=== PATIENT | male | born 1985 | race Caucasian/White ===

== ENCOUNTER 2017-01-04 12:54 | Emergency (ER) | payer OTHER ==
[2017-01-04 13:26] VITALS: BP 136/74
--- NOTE | 2017-01-04 13:39 | UC ---
Abdominal Pain Male HPI - HPI Summary HPI Summary: VOMITING AND DIARRHEA X 2 DAYS + FEVER, CHILLS, NO ABDOMINAL PAIN NO URINARY SX - History of Current Complaint Chief Complaint: UCGeneralIllness Stated Complaint: ACHES,FEVER,THROWING UP Time Seen by Provider: 01/04/17 13:17 Hx Obtained From: Patient Onset/Duration: Gradual Onset, Lasting Days - 2, Still Present Timing: Constant Severity Initially: Moderate Severity Currently: Moderate Location: Diffuse Radiates: No Character: Cramping Aggravating Factor(s):: Food Associated Signs And Symptoms: Positive: Fever, Nausea, Vomiting, Diarrhea. Negative: Diaphoresis, Cough, Chest Pain, Dizzy, Back Pain, Constipation, Blood in Stool, Urinary Symptoms, Decreased Appetite, Penile Discharge - Allergies/Home Medications Allergies/Adverse Reactions: Allergies Allergy/AdvReac Type Severity Reaction Status Date / Time seasonal Allergy Eyes Uncoded 01/04/17 13:26 Itchy/Swollen/Red/Watery Home Medications: Home Medications Gkmmorx-Gcyloaqjilbue-Wxigzout [Excedrin Migraine] 1 tab PO BID PRN 01/04/17 [ History Confirmed 01/04/17] PMH/Surg Hx/FS Hx/Imm Hx Endocrine History: Diabetes - Surgical History Surgical History: Yes Surgery Procedure, Year, and Place: laser eye surgery for retinopathy 2014 - Family History Known Family History: Positive: Hypertension - MOTHER, Diabetes - MOTHER - Social History Alcohol Use: Occasionally Substance Use Type: Excessive Caffeine, Marijuana Substance Use Comment - Amount & Last Used: 2 weeks ago pot Smoking Status (MU): Light Every Day Tobacco Smoker Type: Cigarettes Amount Used/How Often: 1 PPD Length of Time of Smoking/Using Tobacco: 11 Years Have You Smoked in the Last Year: Yes Review of Systems Constitutional: Negative Skin: Negative Eyes: Negative ENT: Negative Respiratory: Negative Cardiovascular: Negative Gastrointestinal: Vomiting, Diarrhea, Nausea All Other Systems Reviewed And Are Negative: Yes Physical Exam Triage Information Reviewed: Yes Appearance: Well-Appearing, No Pain Distress, Well-Nourished Vital Signs: Initial Vital Signs Temp 99.2 F 01/04/17 13:19 Pulse 96 01/04/17 13:19 Resp 18 01/04/17 13:19 BP 136/74 01/04/17 13:19 Vital Signs Reviewed: Yes Eyes: Positive: Conjunctiva Clear ENT: Positive: Normal ENT inspection, Hearing grossly normal, Pharynx normal Neck: Positive: Supple, Nontender, No Lymphadenopathy Respiratory: Positive: Chest non-tender, Lungs clear, Normal breath sounds Cardiovascular: Positive: RRR, No Murmur, Pulses Normal Abdominal Exam: Normal Abdomen Description: Positive: Nontender, Soft. Negative: CVA Tenderness (R), CVA Tenderness (L), Distended, Guarding Bowel Sounds: Positive: Present Skin Exam: Normal Abd Pain Male Course/Dx - Differential Dx/Clinical Impression Provider Diagnoses: GASTROENTERITIS Discharge - Discharge Plan Condition: Stable Disposition: HOME Patient Education Materials: Gastroenteritis (ED) Forms: *Work Release Referrals: Priscilla Hudson [Primary Care Provider] - If Needed
== END 2017-01-04 13:41 | disposition home or self-care (01) ==
LOC: UCCORT 12:54
DX: K52.9 Noninfective gastroenteritis and colitis, unspecified (principal); R50.9 Fever, unspecified; E11.9 Type 2 diabetes mellitus without complications; F12.90 Cannabis use, unspecified, uncomplicated; F17.210 Nicotine dependence, cigarettes, uncomplicated
CPT/HCPCS: 99211; G0463

== ENCOUNTER 2017-04-28 11:54 | Emergency (ER) | payer OTHER ==
[2017-04-28 12:30] VITALS: BP 114/68
--- NOTE | 2017-04-28 12:53 | UC ---
Throat Pain/Nasal Jorge HPI - HPI Summary HPI Summary: 31 y/o male presents to the urgent care c/o body aches, low grade fever, COHEN and mild sore throat since yesterday. Pt took Excedrin PO yesterday to alleviate symptoms. Nasal congestion has clear nasal discharge and B/L ear pressure. Pt denies abdominal pain, cough, SOB, chest pain, N/V/D. 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 - History of Current Complaint Chief Complaint: UCGeneralIllness Stated Complaint: LOW GRADE EVER/BODY ACHES Time Seen by Provider: 04/28/17 12:32 Hx Obtained From: Patient Onset/Duration: Gradual Onset, Lasting Days - 1 day, Still Present Severity: Mild Pain Intensity: 4 Pain Scale Used: 0-10 Numeric Cough: None Associated Signs & Symptoms: Positive: Nasal Discharge - with clear nasal discharge, Fever - low grade. Negative: Vomiting - Epiglottits Risk Factors Epiglottis Risk Factors: Negative - Allergies/Home Medications Allergies/Adverse Reactions: Allergies Allergy/AdvReac Type Severity Reaction Status Date / Time seasonal Allergy Eyes Uncoded 04/28/17 12:30 Itchy/Swollen/Red/Watery PMH/Surg Hx/FS Hx/Imm Hx Previously Healthy: Yes Endocrine History: Diabetes - DM type I - Surgical History Surgical History: Yes Surgery Procedure, Year, and Place: laser eye surgery for retinopathy 2014 - Family History Known Family History: Positive: Hypertension - MOTHER, Diabetes - MOTHER - Social History Occupation: Employed Full-time Lives: With Family Alcohol Use: Rare Substance Use Type: Marijuana Substance Use Comment - Amount & Last Used: 2 weeks ago pot Smoking Status (MU): Light Every Day Tobacco Smoker Type: Cigarettes Amount Used/How Often: 1 PPD Length of Time of Smoking/Using Tobacco: 11 Years Have You Smoked in the Last Year: Yes Review of Systems Constitutional: Fever - low grade, Chills, Other - body aches Skin: Negative Eyes: Negative ENT: Sore Throat - mild, Ear Ache - B/L ear pressure, Nasal Discharge, Sinus Congestion Respiratory: Negative Cardiovascular: Negative Gastrointestinal: Negative Genitourinary: Negative Motor: Negative Neurovascular: Negative Musculoskeletal: Negative Neurological: Headache Psychological: Negative Is Patient Immunocompromised?: No All Other Systems Reviewed And Are Negative: Yes Physical Exam Triage Information Reviewed: Yes Vital Signs: Initial Vital Signs Temp 98.4 F 04/28/17 12:26 Pulse 81 04/28/17 12:26 Resp 16 04/28/17 12:26 BP 114/68 04/28/17 12:26 Pulse Ox 100 04/28/17 12:26 - Additional Comments VITAL SIGNS: Reviewed. GENERAL: Patient is a well developed and nourished male who is sitting comfortable in the examining table. Patient is not in any acute respiratory distress. HEAD AND FACE: No signs of trauma. No ecchymosis, hematomas or skull depressions. No sinus tenderness. EYES: PERRLA, EOMI x 2, No injected conjunctiva, no nystagmus. No photophobia. EARS: Hearing grossly intact. Ear canals and tympanic membranes are within normal limits. Nose; edematous, erythematous nasal mucosa with clear nasal discharge. MOUTH: Positive pharynx with erythema, no exudates, mild palatal petechiae. NO B/L tonsillar enlargement with exudate. Uvula in midline. NECK: Supple, trachea is midline, Positive anterior cervical lymphadenopathy, no JVD, no carotid bruit, no c-spine tenderness, neck with full ROM. No meningeal signs, no Kernig's or brudzinskis signs. CHEST: Symmetric, no tenderness at palpation LUNGS: Clear to auscultation bilaterally. No wheezing or crackles. CVS: Regular rate and rhythm, S1 and S2 present, no murmurs or gallops appreciated. ABDOMEN: Soft, non-tender. No signs of distention. No rebound no guarding, and no masses palpated. Bowel sounds are normal. EXTREMITIES: FROM in all major joints, no edema, no cyanosis or clubbing. NEURO: Alert and oriented x 3. No acute neurological deficits. Speech is normal and follows commands. SKIN: Dry and warm Throat Pain/Nasal Course/Dx - Course Course Of Treatment: 31 y/o male presents to the urgent care c/o body aches, low grade fever, COHEN and mild sore throat since yesterday. Pt took Excedrin PO yesterday to alleviate symptoms. Pt denies abdominal pain, cough, SOB, chest pain, N/V/D. 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 Hx obtained. Pt with pharyngitis on examination. Pt with pharyngitis on examination. Rapid strep ordered, result: negative.Influenza A&B ordered: result : negative.Pt advised to take ibuprofen PO to alleviates symptoms. Advised on hand washing and wear a mask to avoid spreading. Pt advised to rest, increase fluid intake, eat well and avoid strenuous exercise. If symptoms do not improve or worsen advised to return to the urgent care or f/u with her PCP for further evaluation and treatment. Pt understood and agreed with plan of care. Pt with pharyngitis on examination. Rapid strep ordered, result: negative.Influenza A&B ordered: result: Influenza B positive.Pt Rx Tamiflu and ibuprofen PO to alleviates symptoms. Advised on hand washing and wear a mask to avoid spreading. Pt advised to rest, increase fluid intake, eat well and avoid strenuous exercise. If symptoms do not improve or worsen advised to return to the urgent care or f/u with her PCP for further evaluation and treatment. Pt understood and agreed with plan of care. - Differential Dx/Diagnosis Differential Diagnosis/HQI/PQRI: Influenza, Laryngitis, Otitis Media, Pharyngitis, Sinusitis, URI Provider Diagnoses: 1- Upper respiratory infection Discharge - Discharge Plan Condition: Stable Disposition: HOME Patient Education Materials: Upper Respiratory Infection (ED) Forms: *Work Release Referrals: Priscilla Hudson [Primary Care Provider] - 3 Days Additional Instructions: 1-Please continue taking ibuprofen PO q6-8hrs prn as instructed after meals to alleviate Headache and symptoms. Increase fluid intake, eat well, rest and avoid strenuous exercise 2-If symptoms do not improve or worsen please return to the urgent care or f/u with your PCP for further evaluation and treatment.
== END 2017-04-28 13:37 | disposition home or self-care (01) ==
LOC: UCCORT 11:54
DX: J06.9 Acute upper respiratory infection, unspecified (principal); E10.9 Type 1 diabetes mellitus without complications; F12.90 Cannabis use, unspecified, uncomplicated; F17.210 Nicotine dependence, cigarettes, uncomplicated
CPT/HCPCS: 87502; 87651; 99212; G0463

== ENCOUNTER 2017-08-11 11:48 | Emergency (ER) | payer OTHER ==
--- NOTE | 2017-08-11 14:00 | UC ---
Respiratory Complaint HPI - HPI Summary HPI Summary: 32 year old male with history of type 1DM here with cough and congestion for 3 days. Reports productive cough with clear and greenish phlegm. Reports temperature of 100.1 along with myalgia. He has been taking medications but with partial relief. No other complaints. - History of Current Complaint Stated Complaint: CHEST CONGESTION/COUGH Time Seen by Provider: 08/11/17 13:46 Hx Obtained From: Patient Onset/Duration: Sudden Onset Timing: Constant Severity Initially: Mild Severity Currently: Mild Aggravating Factors: Nothing Alleviating Factors: Spontaneous Resolution Associated Signs And Symptoms: Positive: Fever, Chills, URI, Nasal Congestion. Negative: Hoarseness, Sinus Discomfort - Allergies/Home Medications Allergies/Adverse Reactions: Allergies Allergy/AdvReac Type Severity Reaction Status Date / Time seasonal Allergy Eyes Uncoded 08/11/17 14:03 Itchy/Swollen/Red/Watery Home Medications: Home Medications Insulin Aspart [Novolog] 20 - 25 unit SEE INSTRUCTIONS 08/11/17 [History Confirmed 08/11/17] Omeprazole CAP* [Prilosec CAP* 20 MG] 1 cap DAILY 08/11/17 [History Confirmed ] PMH/Surg Hx/FS Hx/Imm Hx Endocrine History: Diabetes - Surgical History Surgical History: Yes Surgery Procedure, Year, and Place: laser eye surgery for retinopathy 2014 - Family History Known Family History: Positive: Hypertension - MOTHER, Diabetes - MOTHER - Social History Alcohol Use: Rare Substance Use Type: Marijuana Substance Use Comment - Amount & Last Used: 2 weeks ago pot Smoking Status (MU): Light Every Day Tobacco Smoker Type: Cigarettes Amount Used/How Often: 1 PPD Length of Time of Smoking/Using Tobacco: 11 Years Have You Smoked in the Last Year: Yes Review of Systems Constitutional: Fever, Chills Respiratory: Shortness Of Breath, Cough All Other Systems Reviewed And Are Negative: Yes Physical Exam Triage Information Reviewed: Yes Appearance: Well-Appearing, No Pain Distress ENT: Positive: Normal ENT inspection, Pharynx normal Neck exam: Normal Respiratory Exam: Normal Respiratory: Positive: Normal breath sounds, No respiratory distress. Negative : Crackles, Rhonchi, Stridor, Wheezing, Expiration Cardiovascular Exam: Normal Abdominal Exam: Normal, Other - Insulin pump in place Psychological Exam: Normal Skin Exam: Normal Respiratory Course/Dx - Differential Dx/Diagnosis Differential Diagnosis/HQI/PQRI: Bronchitis, Laryngitis, Lower Resp Infection Provider Diagnoses: bronchitis Discharge - Sign-Out/Discharge Documenting (check all that apply): Discharge/Admit/Transfer - Discharge Plan Condition: Good Disposition: HOME Prescriptions: Azithromyxin ANA MARIA (NF) [Z-Ana Amria (Zithromax) 250 mg tabs #6] 2 tab PO .TODAY, THEN 1 DAILY #6 tab Benzonatate CAP* [Tessalon 100 MG CAP*] 100 mg PO TID PRN #12 cap PRN Reason: Cough Patient Education Materials: How to Stop Smoking (ED), Acute Bronchitis (ED) Forms: *Work Release Referrals: Priscilla Hudson [Primary Care Provider] - Additional Instructions: You have to try harder to stop smoking - Billing Disposition and Condition Condition: GOOD Disposition: HOME
[2017-08-11 14:08] VITALS: BP 122/78
== END 2017-08-11 14:13 | disposition home or self-care (01) ==
LOC: UCCORT 11:48
DX: J40 Bronchitis, not specified as acute or chronic (principal); F17.210 Nicotine dependence, cigarettes, uncomplicated
CPT/HCPCS: 99212; G0463

== ENCOUNTER 2018-10-26 13:03 | Emergency (ER) | payer OTHER ==
[2018-10-26 13:42] VITALS: BP 117/66
--- NOTE | 2018-10-26 14:38 | UC ---
Eye Complaint HPI - HPI Summary HPI Summary: Pt presens with c/o sudden onset of left eye redness, irritation and discharge. Pt has known exposure to pink eye. - History of Current Complaint Chief Complaint: UCEye Stated Complaint: LEFT EYE COMPLAINT Time Seen by Provider: 10/26/18 14:24 Hx Obtained From: Patient Onset/Duration: Sudden Onset, Lasting Hours, Still Present Timing: Constant Severity Initially: Mild Severity Currently: Mild Pain Intensity: 2 Aggravating Factor(s): Nothing Alleviating Factor(s): Nothing Associated Signs And Symptoms: Positive: Drainage (Purulent) - Risk Factors Penetrating Injury Risk Factor: Negative Globe Rupture Risk Factors: Negative Acute Glaucoma Risk Factors: Negative - Allergies/Home Medications Allergies/Adverse Reactions: Allergies Allergy/AdvReac Type Severity Reaction Status Date / Time seasonal Allergy Eyes Uncoded 10/26/18 13:36 Itchy/Swollen/Red/Watery PMH/Surg Hx/FS Hx/Imm Hx Previously Healthy: Yes - Surgical History Surgical History: Yes Surgery Procedure, Year, and Place: laser eye surgery for retinopathy 2014 - Family History Known Family History: Positive: Hypertension - MOTHER, Diabetes - MOTHER - Social History Occupation: Employed Full-time Lives: With Family Alcohol Use: Rare Substance Use Type: Marijuana Substance Use Comment - Amount & Last Used: occasional Smoking Status (MU): Light Every Day Tobacco Smoker Type: Cigarettes Amount Used/How Often: 1 PPD Length of Time of Smoking/Using Tobacco: 11 Years Have You Smoked in the Last Year: Yes Review of Systems All Other Systems Reviewed And Are Negative: Yes Constitutional: Positive: Negative Skin: Positive: Negative Eyes: Positive: Drainage, Eye Redness ENT: Positive: Negative Respiratory: Positive: Negative Cardiovascular: Positive: Negative Gastrointestinal: Positive: Negative Genitourinary: Positive: Negative Motor: Positive: Negative Neurovascular: Positive: Negative Musculoskeletal: Positive: Negative Neurological: Positive: Negative Psychological: Positive: Negative Is Patient Immunocompromised?: No Physical Exam Triage Information Reviewed: Yes Appearance: Well-Appearing Vital Signs: Initial Vital Signs Temp 98.9 F 10/26/18 13:37 Pulse 79 10/26/18 13:37 Resp 14 10/26/18 13:37 BP 117/66 10/26/18 13:37 Pulse Ox 100 10/26/18 13:37 Vital Signs Reviewed: Yes Eyes: Positive: Conjunctiva Inflamed - left eye, Discharge - left eye ENT Exam: Normal Respiratory Exam: Normal Respiratory: Positive: No respiratory distress Musculoskeletal Exam: Normal Neurological Exam: Normal Psychological Exam: Normal Skin Exam: Normal Eye Complaint Course/Dx - Differential Dx/Diagnosis Differential Diagnosis/HQI/PQRI: Conjunctivitis, Uveitis Provider Diagnosis: Conjunctivitis Discharge - Sign-Out/Discharge Documenting (check all that apply): Patient Departure All imaging exams completed and their final reports reviewed: No Studies - Discharge Plan Condition: Stable Disposition: HOME Prescriptions: Polymyx/Trimethoprim OPTH* [Polytrim OPHTH*] 2 drop BOTH EYES Q6H 7 Days #1 btl Patient Education Materials: Conjunctivitis (ED) Forms: *Work Release Referrals: Priscilla Hudson [Primary Care Provider] - If Needed - Billing Disposition and Condition Condition: STABLE Disposition: Home
== END 2018-10-26 14:48 | disposition home or self-care (01) ==
LOC: UCCORT 13:03
DX: H10.9 Unspecified conjunctivitis (principal); F17.210 Nicotine dependence, cigarettes, uncomplicated
CPT/HCPCS: 99212; G0463